=== PATIENT | male | born 1955 | race Caucasian/White ===

== ENCOUNTER 2019-06-28 22:58 | Inpatient (IN) ==
[2019-06-29 02:33] LABS: White Blood Count 9.1 K/mcL (4.3-11.1)
[2019-06-29 02:34] LABS: Hematocrit 24.9 % (37.5-50.1); Hemoglobin 6.6 g/dL (12.9-16.9); Immature Granulocytes % 1.1 % (0-4); Lymphocytes # 0.8 K/mcL (0.6-4.6); Lymphocytes % 8.6 %; Mean Corpuscular HGB Conc 26.5 g/dL (31.6-35.5); Mean Corpuscular Hemoglobin 17.5 pg (28.0-33.3); Monocytes # 0.1 K/mcL (0.0-1.3); Monocytes % 1.2 %; Neutrophils # 8.1 K/mcL (1.6-8.9); Platelet Count 392 K/mcL (140-400); Red Blood Count 3.77 M/mcL (4.19-5.50); Red Cell Distribution Width 19.9 % (11.5-14.5); Segmented Neutrophils % 89.1 %
[2019-06-29 02:36] LABS: Prothrombin Time 11.9 Seconds (9.4-12.1)
[2019-06-29 02:50] LABS: Anisocytosis 1+ (Not Present); Hypochromasia Present (Not Present); Microcytosis Present (Not Present); Platelet Estimate Normal (Normal)
[2019-06-29 02:54] LABS: Alanine Aminotransferase 6 Units/L (7-52); Albumin 3.8 g/dL (3.5-5.7); Albumin/Globulin Ratio 1.1 (1.1-2.2); Alkaline Phosphatase 169 Units/L (34-104); Aspartate Amino Transferase 11 Units/L (13-39); BUN/Creatinine Ratio 17 (6-26); Bilirubin,Total 0.4 mg/dL (0.3-1.0); Blood Urea Nitrogen 17 mg/dL (8-23); Calcium 8.9 mg/dL (8.6-10.3); Carbon Dioxide 21 mEq/L (23-29); Chloride 105 mEq/L (98-107); Globulin 3.6 g/dL (2.4-3.5); Glucose 151 mg/dL (70-105); Magnesium 1.7 mg/dL (1.6-2.6); Osmolality,Calculated 284 (280-300); Phosphorous 3.7 mg/dL (2.7-4.5); Potassium 4.2 mEq/L (3.5-5.1); Sodium 135 mEq/L (136-145); Total Protein 7.4 g/dL (6.4-8.9); eGFR For African Americans > 60 (> 60); eGFR For Non-African Americans > 60 (> 60)
[2019-06-29 02:55] LABS: Bilirubin,Urine Negative (Negative); Blood,Urine Negative (Negative); Clarity,Urine Clear (Clear); Color,Urine Yellow (Yellow); Glucose,Urine (UA) Normal (Normal); Ketones,Urine Negative (Negative); Leukocyte Esterase,Urine Negative (Negative); Nitrite,Urine Negative (Negative); Protein,Urine 30 mg/dL (Neg-Trace); Specific Gravity,Urine > 1.030 (1.010-1.025); Urobilinogen,Urine Normal (Normal)
[2019-06-29 02:58] LABS: Bacteria,Urine None Seen per hpf (None-Few); Hyaline Casts,Urine None Seen per lpf (None-Few); Squamous Epithelial Cell,Urine Moderate per lpf (None-Few); WBC,Urine 0-3 per hpf (0-3)
[2019-06-29 03:07] LABS: Thyroid Stimulating Hormone 1.211 mcIU/mL (0.340-5.600)
[2019-06-29 03:30] LABS: Estimated Average Glucose 131 mg/dl
[2019-06-29] MEDS ORDERED: 0.9 % Sodium Chloride 250 ML IVC SCH (07:00)
[2019-06-29 07:28] LABS: Hematocrit 24.2 % (37.5-50.1); Hemoglobin 6.5 g/dL (12.9-16.9); Retculocyte # 0.04 M/mcL (0.05-0.10)
[2019-06-29] MEDS ORDERED: Morphine Sulfate 2 MG/ML SYRINGE IVP ONE (07:45)
[2019-06-29] MEDS ORDERED: Naloxone 0.4 MG/ML INJ IVP PRN (07:49)
[2019-06-29] MEDS ORDERED: Melatonin 3 MG TABLET PO PRN (07:50)
[2019-06-29 08:02] LABS: Ferritin < 8 ng/mL (20-250); Iron < 10 mcg/dL (65-175); Transferrin 388 mg/dL (203-362)
[2019-06-29 08:22] LABS: Folate 9.3 ng/mL (3.0-16.0)
[2019-06-29] MEDS: Pantoprazole 40 MG VIAL IVP SCH ×2 (10:39→17:30)
[2019-06-29] MEDS: *HR* OxyCODONE/APAP 5/325 TABLET PO PRN ×2 (10:50→17:41)
[2019-06-29 11:40] LABS: Amphetamine Screen,Urine Negative ng/mL (Cutoff=1000); Barbiturate Screen,Urine Negative ng/mL (Cutoff=200); Benzodiazepines Screen,Urine Negative ng/mL (Cutoff=200); Cannabinoid Screen,Urine Positive ng/mL (Cutoff = 50); Cocaine Screen,Urine Negative ng/mL (Cutoff= 300); Opiate Screen,Urine Positive ng/mL (Cutoff=300); Phencyclidine Screen,Urine Negative ng/mL (Cutoff=25)
[2019-06-29] MEDS ORDERED: Acetaminophen 325 MG TABLET PO SCH (12:00)
[2019-06-29] MEDS ORDERED: Acetaminophen 325 MG TABLET PO PRN (12:02)
[2019-06-29 14:22] LABS: Hematocrit 25.5 % (37.5-50.1)
[2019-06-29 19:38] LABS: Hematocrit 30.7 % (37.5-50.1)
[2019-06-29 19:49] LABS: Hemoglobin 8.6 g/dL (12.9-16.9)
[2019-06-29] MEDS: Morphine Sulfate 2 MG/ML SYRINGE IVP PRN (20:24)
[2019-06-29] MEDS ORDERED: Milk and Molasses Enema 200 ML RC ONE (23:12)
[2019-06-29] MEDS ORDERED: *HR* OxyCODONE Immed Rel 5 MG TABLET PO ONE (23:15)
[2019-06-29] MEDS: Ipratropium/Albuterol Neb 3 ML IH PRN (23:55)
[2019-06-30] MEDS: Morphine Sulfate 2 MG/ML SYRINGE IVP PRN ×3 (02:50→15:51)
[2019-06-30 05:17] LABS: BUN/Creatinine Ratio 20 (6-26); Blood Urea Nitrogen 20 mg/dL (8-23); Calcium 8.8 mg/dL (8.6-10.3); Carbon Dioxide 26 mEq/L (23-29); Chloride 104 mEq/L (98-107); Glucose 110 mg/dL (70-105); Osmolality,Calculated 285 (280-300); Sodium 136 mEq/L (136-145); eGFR For African Americans > 60 (> 60); eGFR For Non-African Americans > 60 (> 60)
[2019-06-30 05:20] LABS: Hemoglobin 8.5 g/dL (12.9-16.9); Mean Corpuscular HGB Conc 27.4 g/dL (31.6-35.5); Mean Corpuscular Hemoglobin 19.6 pg (28.0-33.3); Mean Corpuscular Volume 71.4 fL (83.0-100.0); Mean Platelet Volume 9.6 fL (9.4-12.4); Platelet Count 424 K/mcL (140-400); Red Blood Count 4.34 M/mcL (4.19-5.50); Red Cell Distribution Width 24.1 % (11.5-14.5); White Blood Count 10.3 K/mcL (4.3-11.1)
[2019-06-30] MEDS: Pantoprazole 40 MG VIAL IVP SCH ×2 (05:50→17:48)
[2019-06-30] MEDS: Ipratropium/Albuterol Neb 3 ML IH PRN (08:18)
[2019-06-30] MEDS ORDERED: Orphenadrine 60 MG/2 ML VIAL IVP ONE (08:57)
[2019-06-30] MEDS ORDERED: Albuterol 2.5 MG/3 ML NEBULIZER IH PRN (09:35)
[2019-06-30] MEDS: Ipratropium/Albuterol Neb 3 ML IH SCH ×2 (11:01→15:27)
[2019-06-30] MEDS ORDERED: Isovue-370 500 ML BOTTLE IVP ONE (12:59)
[2019-06-30] MEDS ORDERED: Orphenadrine 100 MG TABLET.ER PO PRN (13:36)
[2019-06-30] MEDS ORDERED: NON-FORMULARY MEDICATION 1 EACH EACH (Melatonin 20 MG) PO PRN (13:56)
[2019-06-30] MEDS ORDERED: Ondansetron 4 MG/2 ML VIAL IVP PRN (15:48)
[2019-06-30 20:03] LABS: ABG Base Excess -2 mEq/L (-2 to 3); ABG HCO3 25 mEq/L (21-27); ABG Oxygen Saturation 87 % (95-98); ABG PCO2 50 mmHg (35-45); ABG PH 7.31 pH Units (7.32-7.45); ABG PO2 58 mmHg (85-104); ABG TCO2 27 mEq/L (20-26)
[2019-06-30] MEDS: Levalbuterol Neb 1.25 MG/3 ML IH SCH (20:16)
[2019-06-30] MEDS: methylPREDNISolone 125 MG/2 ML VIAL IVP SCH (23:52)
[2019-07-01] MEDS: Levalbuterol Neb 1.25 MG/3 ML IH SCH ×7 (00:03→23:24)
[2019-07-01] MEDS ORDERED: Milk and Molasses Enema 200 ML RC ONE (00:04)
[2019-07-01] MEDS: *HR* HYDROcodone/Acet 5/325 mg TABLET PO PRN ×4 (02:10→21:41)
[2019-07-01] MEDS: Pantoprazole 40 MG VIAL IVP SCH ×2 (05:04→14:57)
[2019-07-01 05:42] LABS: Hematocrit 29.3 % (37.5-50.1); Hemoglobin 7.9 g/dL (12.9-16.9); Mean Corpuscular Hemoglobin 19.7 pg (28.0-33.3); Mean Corpuscular Volume 73.1 fL (83.0-100.0); Mean Platelet Volume 9.4 fL (9.4-12.4); Platelet Count 334 K/mcL (140-400); Red Blood Count 4.01 M/mcL (4.19-5.50); Red Cell Distribution Width 24.6 % (11.5-14.5); White Blood Count 9.2 K/mcL (4.3-11.1)
[2019-07-01 05:54] LABS: BUN/Creatinine Ratio 21 (6-26); Blood Urea Nitrogen 21 mg/dL (8-23); Calcium 9.1 mg/dL (8.6-10.3); Carbon Dioxide 26 mEq/L (23-29); Chloride 100 mEq/L (98-107); Glucose 140 mg/dL (70-105); Osmolality,Calculated 285 (280-300); Potassium 4.4 mEq/L (3.5-5.1); Sodium 135 mEq/L (136-145); eGFR For African Americans > 60 (> 60); eGFR For Non-African Americans > 60 (> 60)
[2019-07-01] MEDS: methylPREDNISolone 125 MG/2 ML VIAL IVP SCH ×2 (08:41→15:56)
[2019-07-01] MEDS ORDERED: Dextrose Gel 15 GM/37.5 ML TUBE PO PRN ×2 (10:28)
[2019-07-01] MEDS ORDERED: D5% in Water 1,000 ML IVC PRN (10:28)
[2019-07-01] MEDS ORDERED: *HR* Dextrose 50 % in Water (Syg) 50 ML SYRINGE IVP PRN (10:28)
[2019-07-01] MEDS ORDERED: *HR* Succinylcholine 200 MG/10 ML VIAL IVP ONE (10:49)
[2019-07-01] MEDS ORDERED: Lidocaine -MPF 2% 2 ML VIAL ONE (10:49)
[2019-07-01] MEDS ORDERED: Ondansetron 4 MG/2 ML VIAL ONE (10:49)
[2019-07-01] MEDS ORDERED: Lidocaine -MPF 4% 5 ML AMPUL ONE (10:49)
[2019-07-01] MEDS ORDERED: *HR* Propofol 200 MG/20 ML VIAL IVP ONE (10:50)
[2019-07-01] MEDS ORDERED: *HR* PHENYLEPHRINE 1,000 MCG/10 ML SYRINGE IVP ONE (10:55)
[2019-07-01] MEDS ORDERED: Iron Sucrose Complex 200 MG in 0.9 % Sodium Chloride 100 ML IVPB ONE ×2 (11:14→15:00)
[2019-07-01] MEDS ORDERED: EPHEDrine 50 MG/ML VIAL ONE (11:26)
[2019-07-01] MEDS ORDERED: Insulin LISPRO 300 UNITS/3 ML VIAL SQ SCH (12:00)
[2019-07-01] MEDS ORDERED: Azithromycin 500 MG in 0.9 % Sodium Chloride 250 ML IVPB ONE (14:24)
[2019-07-01] MEDS ORDERED: Sodium Ferric Gluconat/Sucrose 250 MG in 0.9 % Sodium Chloride 100 ML IVPB SCH (14:32)
[2019-07-01] MEDS: Iron Sucrose Complex 200 MG in 0.9 % Sodium Chloride 100 ML IVPB SCH (14:55)
[2019-07-01] MEDS: Cyanocobalamin (B-12) 1,000 MCG/ML VIAL IM SCH (15:13)
[2019-07-01] MEDS: Budesonide/Formoterol 160/4.5 1 PUFF INH IH SCH ×2 (15:57→20:21)
[2019-07-01] MEDS: Doxycycline 100 MG in 0.9 % Sodium Chloride Mini Bag 100 ML IVPB SCH (17:33)
[2019-07-01] MEDS ORDERED: Piperacillin/Tazobactam 3.375 GM in 0.9 % Sodium Chloride Mini Bag 100 ML IVPB SCH ×2 (18:00→18:30)
[2019-07-02] MEDS: methylPREDNISolone 125 MG/2 ML VIAL IVP SCH ×4 (00:18→23:31)
[2019-07-02] MEDS: Levalbuterol Neb 1.25 MG/3 ML IH SCH ×6 (03:59→22:55)
[2019-07-02] MEDS: *HR* HYDROcodone/Acet 5/325 mg TABLET PO PRN ×4 (04:06→22:15)
[2019-07-02] MEDS: Doxycycline 100 MG in 0.9 % Sodium Chloride Mini Bag 100 ML IVPB SCH ×2 (05:57→17:15)
[2019-07-02] MEDS: Budesonide/Formoterol 160/4.5 1 PUFF INH IH SCH ×2 (07:34→20:11)
[2019-07-02] MEDS: Piperacillin/Tazobactam 3.375 GM in 0.9 % Sodium Chloride Mini Bag 100 ML IVPB SCH ×3 (08:51→23:32)
[2019-07-02] MEDS: Cyanocobalamin (B-12) 1,000 MCG/ML VIAL IM SCH (08:52)
[2019-07-02] MEDS: Pantoprazole 40 MG VIAL IVP SCH (08:53)
[2019-07-02] MEDS ORDERED: Azithromycin 250 MG TABLET PO SCH (09:00)
[2019-07-02] MEDS: Furosemide 20 MG/2 ML VIAL IVP SCH ×2 (13:51→17:15)
[2019-07-02] MEDS: Iron Sucrose Complex 200 MG in 0.9 % Sodium Chloride 100 ML IVPB SCH (13:51)
[2019-07-02 16:56] LABS: Mean Corpuscular Hemoglobin 19.7 pg (28.0-33.3)
[2019-07-02 17:11] LABS: Hematocrit 31.2 % (37.5-50.1); Hemoglobin 8.6 g/dL (12.9-16.9); Immature Platelets 3.5 % (1.1-6.1); Mean Corpuscular HGB Conc 27.6 g/dL (31.6-35.5); Mean Corpuscular Volume 71.6 fL (83.0-100.0); Mean Platelet Volume 9.9 fL (9.4-12.4); Red Blood Count 4.36 M/mcL (4.19-5.50); Red Cell Distribution Width 26.5 % (11.5-14.5); White Blood Count 11.1 K/mcL (4.3-11.1)
[2019-07-02 17:18] LABS: BUN/Creatinine Ratio 22 (6-26); Blood Urea Nitrogen 26 mg/dL (8-23); Calcium 9.1 mg/dL (8.6-10.3); Carbon Dioxide 23 mEq/L (23-29); Chloride 101 mEq/L (98-107); Glucose 187 mg/dL (70-105); Osmolality,Calculated 294 (280-300); Potassium 4.1 mEq/L (3.5-5.1); Sodium 137 mEq/L (136-145); eGFR For African Americans > 60 (> 60); eGFR For Non-African Americans > 60 (> 60)
[2019-07-03] MEDS: Levalbuterol Neb 1.25 MG/3 ML IH SCH ×5 (04:12→20:21)
[2019-07-03 04:42] LABS: Red Cell Distribution Width 26.9 % (11.5-14.5)
[2019-07-03 04:43] LABS: Basophils % 0.1 %; Hematocrit 26.8 % (37.5-50.1); Hemoglobin 7.3 g/dL (12.9-16.9); Immature Granulocytes % 1.5 % (0-4); Lymphocytes # 0.9 K/mcL (0.6-4.6); Lymphocytes % 9.4 %; Mean Corpuscular HGB Conc 27.2 g/dL (31.6-35.5); Mean Corpuscular Volume 73.4 fL (83.0-100.0); Mean Platelet Volume 9.5 fL (9.4-12.4); Monocytes # 0.5 K/mcL (0.0-1.3); Monocytes % 5.6 %; Platelet Count 333 K/mcL (140-400); Red Blood Count 3.65 M/mcL (4.19-5.50); Segmented Neutrophils % 83.4 %; White Blood Count 9.4 K/mcL (4.3-11.1)
[2019-07-03 04:48] LABS: Neutrophils # 7.8 K/mcL (1.6-8.9)
[2019-07-03 05:00] LABS: BUN/Creatinine Ratio 28 (6-26); Blood Urea Nitrogen 31 mg/dL (8-23); Calcium 8.6 mg/dL (8.6-10.3); Carbon Dioxide 28 mEq/L (23-29); Chloride 101 mEq/L (98-107); Glucose 136 mg/dL (70-105); Osmolality,Calculated 295 (280-300); Sodium 138 mEq/L (136-145); eGFR For African Americans > 60 (> 60); eGFR For Non-African Americans > 60 (> 60)
[2019-07-03 05:26] LABS: Anisocytosis 1+ (Not Present); Hypochromasia Present (Not Present)
[2019-07-03] MEDS: Doxycycline 100 MG in 0.9 % Sodium Chloride Mini Bag 100 ML IVPB SCH (05:26)
[2019-07-03] MEDS: *HR* HYDROcodone/Acet 5/325 mg TABLET PO PRN ×3 (05:26→20:09)
[2019-07-03 05:27] LABS: Platelet Estimate Normal (Normal); Polychromasia 1+ (Not Present)
[2019-07-03] MEDS: Budesonide/Formoterol 160/4.5 1 PUFF INH IH SCH ×2 (07:19→20:21)
[2019-07-03] MEDS: methylPREDNISolone 125 MG/2 ML VIAL IVP SCH ×2 (08:02→16:51)
[2019-07-03] MEDS: Piperacillin/Tazobactam 3.375 GM in 0.9 % Sodium Chloride Mini Bag 100 ML IVPB SCH ×2 (08:02→16:51)
[2019-07-03] MEDS: Pantoprazole 40 MG VIAL IVP SCH (08:03)
[2019-07-03] MEDS: Iron Sucrose Complex 200 MG in 0.9 % Sodium Chloride 100 ML IVPB SCH (08:03)
[2019-07-03] MEDS: Furosemide 20 MG/2 ML VIAL IVP SCH ×3 (08:03→16:51)
[2019-07-03] MEDS: Cyanocobalamin (B-12) 1,000 MCG/ML VIAL IM SCH (08:09)
[2019-07-03 10:20] LABS: Hematocrit 30.9 % (37.5-50.1); Hemoglobin 8.5 g/dL (12.9-16.9)
[2019-07-03] MEDS: Doxycycline 100 MG CAPSULE PO SCH (20:08)
[2019-07-04] MEDS: Levalbuterol Neb 1.25 MG/3 ML IH SCH ×5 (00:35→16:09)
[2019-07-04] MEDS: methylPREDNISolone 125 MG/2 ML VIAL IVP SCH (00:49)
[2019-07-04] MEDS: Piperacillin/Tazobactam 3.375 GM in 0.9 % Sodium Chloride Mini Bag 100 ML IVPB SCH ×3 (00:50→16:33)
[2019-07-04] MEDS: *HR* HYDROcodone/Acet 5/325 mg TABLET PO PRN ×3 (03:42→16:33)
[2019-07-04] MEDS: Budesonide/Formoterol 160/4.5 1 PUFF INH IH SCH (07:20)
[2019-07-04 07:29] LABS: Red Cell Distribution Width 27.9 % (11.5-14.5)
[2019-07-04 07:31] LABS: Basophils % 0.1 %; Hematocrit 29.2 % (37.5-50.1); Hemoglobin 8.2 g/dL (12.9-16.9); Immature Granulocytes % 2.3 % (0-4); Lymphocytes # 1.4 K/mcL (0.6-4.6); Lymphocytes % 12.7 %; Mean Corpuscular HGB Conc 28.1 g/dL (31.6-35.5); Mean Corpuscular Hemoglobin 19.9 pg (28.0-33.3); Mean Corpuscular Volume 70.9 fL (83.0-100.0); Mean Platelet Volume 9.6 fL (9.4-12.4); Monocytes # 0.7 K/mcL (0.0-1.3); Monocytes % 6.4 %; Nucleated Red Blood Cells 0.5 /100 WBC (0); Platelet Count 363 K/mcL (140-400); Red Blood Count 4.12 M/mcL (4.19-5.50); Segmented Neutrophils % 78.5 %; White Blood Count 10.9 K/mcL (4.3-11.1)
[2019-07-04 07:47] LABS: BUN/Creatinine Ratio 30 (6-26); Blood Urea Nitrogen 30 mg/dL (8-23); Calcium 8.6 mg/dL (8.6-10.3); Carbon Dioxide 30 mEq/L (23-29); Chloride 99 mEq/L (98-107); Glucose 220 mg/dL (70-105); Osmolality,Calculated 301 (280-300); Potassium 4.1 mEq/L (3.5-5.1); Sodium 139 mEq/L (136-145); eGFR For African Americans > 60 (> 60); eGFR For Non-African Americans > 60 (> 60)
[2019-07-04 07:50] LABS: Neutrophils # 8.6 K/mcL (1.6-8.9)
[2019-07-04 08:29] LABS: Anisocytosis 3+ (Not Present); Hypochromasia Present (Not Present); Microcytosis Present (Not Present)
[2019-07-04 08:30] LABS: Macrocytosis Present (Not Present); Polychromasia 1+ (Not Present)
[2019-07-04 08:31] LABS: Platelet Estimate Normal (Normal)
[2019-07-04] MEDS ORDERED: Furosemide 40 MG TABLET PO SCH (09:00)
[2019-07-04] MEDS ORDERED: predniSONE 20 MG TABLET PO SCH (09:00)
[2019-07-04] MEDS: Iron Sucrose Complex 200 MG in 0.9 % Sodium Chloride 100 ML IVPB SCH (09:03)
[2019-07-04] MEDS: Doxycycline 100 MG CAPSULE PO SCH (09:04)
[2019-07-04] MEDS: Cyanocobalamin (B-12) 1,000 MCG/ML VIAL IM SCH (09:04)
[2019-07-04] MEDS: Pantoprazole 40 MG VIAL IVP SCH (09:04)
[2019-07-04 14:09] VITALS: BP 171/87
== END 2019-07-04 19:05 | disposition home or self-care (01) | DRG 377 ==
LOC: 3ANU → SUATTDRO 06-29 00:30
PROVIDERS: ADMIT Internal Medicine; ATTEND Internal Medicine

== ENCOUNTER 2020-07-31 03:07 | Observation (INO) ==
[2020-07-31 04:19] LABS: Bilirubin,Urine Negative (Negative); Blood,Urine Negative (Negative); Clarity,Urine Clear (Clear); Color,Urine Light-Yellow (Yellow); Glucose,Urine (UA) Normal (Normal); Ketones,Urine Negative (Negative); Leukocyte Esterase,Urine Negative (Negative); Nitrite,Urine Negative (Negative); Protein,Urine Trace mg/dL (Neg-Trace); Specific Gravity,Urine 1.017 (1.010-1.025); Urobilinogen,Urine Normal (Normal)
[2020-07-31 04:21] LABS: Basophils % 0.2 %; Immature Granulocytes % 0.4 % (0-4)
[2020-07-31 04:23] LABS: Eosinophils # 0.3 K/mcL (0.0-0.6); Eosinophils % 2.3 %; Hematocrit 30.2 % (37.5-50.1); Hemoglobin 8.1 g/dL (12.9-16.9); Lymphocytes # 3.8 K/mcL (0.6-4.6); Lymphocytes % 35.9 %; Mean Corpuscular HGB Conc 26.8 g/dL (31.6-35.5); Mean Corpuscular Hemoglobin 18.3 pg (28.0-33.3); Mean Corpuscular Volume 68.2 fL (83.0-100.0); Mean Platelet Volume 9.2 fL (9.4-12.4); Monocytes # 0.9 K/mcL (0.0-1.3); Monocytes % 8.7 %; Neutrophils # 5.6 K/mcL (1.6-8.9); Platelet Count 484 K/mcL (140-400); Red Blood Count 4.43 M/mcL (4.19-5.50); Red Cell Distribution Width 19.1 % (11.5-14.5); Segmented Neutrophils % 52.5 %; White Blood Count 10.7 K/mcL (4.3-11.1)
[2020-07-31 04:30] LABS: INR 1.1; Prothrombin Time 12.7 Seconds (9.4-12.1)
[2020-07-31 04:54] LABS: BUN/Creatinine Ratio 19 (6-26); Blood Urea Nitrogen 25 mg/dL (8-23); Calcium 8.9 mg/dL (8.6-10.3); Carbon Dioxide 32 mEq/L (23-29); Chloride 93 mEq/L (98-107); Glucose 95 mg/dL (70-105); Osmolality,Calculated 284 (280-300); Potassium 2.4 mEq/L (3.5-5.1); Sodium 135 mEq/L (136-145); eGFR For African Americans > 60 (> 60); eGFR For Non-African Americans 56 (> 60)
[2020-07-31 05:02] LABS: Anisocytosis 1+ (Not Present); Hypochromasia Present (Not Present)
[2020-07-31 05:03] LABS: Platelet Estimate Normal (Normal); Poikilocytosis 1+ (Not Present)
[2020-07-31] MEDS ORDERED: Perflutren Lipid Microsphere 1.3 ML in 0.9 % Sodium Chloride 8.7 ML IVP PRN (05:28)
[2020-07-31] MEDS ORDERED: Potassium Chloride 40 MEQ, Lidocaine 1% 2 ML in 0.9 % Sodium Chloride 500 ML IVPB ONE (05:45)
[2020-07-31] MEDS ORDERED: Naloxone 0.4 MG/ML INJ IVP PRN (05:46)
[2020-07-31] MEDS ORDERED: Iron Dextran Complex 1,000 MG in 0.9 % Sodium Chloride 500 ML IVPB ONE (07:33)
[2020-07-31] MEDS: tiZANidine 4 MG TABLET PO SCH ×3 (07:59→20:28)
[2020-07-31] MEDS ORDERED: Nicotine 2 MG GUM BC PRN (12:16)
[2020-07-31] MEDS: Nicotine 21 MG PATCH.TD24 TD SCH (13:33)
[2020-07-31] MEDS ORDERED: traZODone 50 MG TABLET PO SCH (21:00)
[2020-07-31] MEDS ORDERED: Melatonin 3 MG TABLET PO PRN (21:00)
[2020-08-01 07:02] VITALS: BP 108/64
[2020-08-01] MEDS: tiZANidine 4 MG TABLET PO SCH (09:34)
[2020-08-01] MEDS: Nicotine 21 MG PATCH.TD24 TD SCH (09:35)
[2020-08-01 10:10] LABS: Mean Platelet Volume 9.2 fL (9.4-12.4)
[2020-08-01 10:11] LABS: Hematocrit 29.7 % (37.5-50.1); Hemoglobin 7.9 g/dL (12.9-16.9); Mean Corpuscular HGB Conc 26.6 g/dL (31.6-35.5); Mean Corpuscular Hemoglobin 18.5 pg (28.0-33.3); Mean Corpuscular Volume 69.4 fL (83.0-100.0); Platelet Count 481 K/mcL (140-400); Red Blood Count 4.28 M/mcL (4.19-5.50); Red Cell Distribution Width 19.3 % (11.5-14.5); White Blood Count 7.6 K/mcL (4.3-11.1)
[2020-08-01 10:20] LABS: Alanine Aminotransferase 5 Units/L (7-52); Albumin 3.6 g/dL (3.5-5.7); Albumin/Globulin Ratio 1.1 (1.1-2.2); Alkaline Phosphatase 111 Units/L (34-104); Aspartate Amino Transferase 8 Units/L (13-39); BUN/Creatinine Ratio 14 (6-26); Bilirubin,Total 0.3 mg/dL (0.3-1.0); Blood Urea Nitrogen 15 mg/dL (8-23); Calcium 8.8 mg/dL (8.6-10.3); Carbon Dioxide 30 mEq/L (23-29); Chloride 101 mEq/L (98-107); Globulin 3.4 g/dL (2.4-3.5); Glucose 86 mg/dL (70-105); Osmolality,Calculated 288 (280-300); Potassium 3.8 mEq/L (3.5-5.1); Sodium 139 mEq/L (136-145); eGFR For African Americans > 60 (> 60); eGFR For Non-African Americans > 60 (> 60)
== END 2020-08-01 12:49 | disposition home or self-care (01) ==
LOC: EMEROOARM 03:07 → 3ANU 03:07 → SUATTDRO 05:36 → 3ANU 06:52
PROVIDERS: ADMIT Internal Medicine; ATTEND Family Medicine

== ENCOUNTER 2020-08-08 21:22 | Observation (INO) ==
[2020-08-08] MEDS ORDERED: Isovue-370 500 ML BOTTLE IVP ONE ×2 (21:46→21:50)
[2020-08-08 22:04] LABS: Basophils % 0.2 %; Eosinophils # 0.2 K/mcL (0.0-0.6); Eosinophils % 1.3 %; Hematocrit 29.2 % (37.5-50.1); Hemoglobin 8.2 g/dL (12.9-16.9); Immature Granulocytes % 0.4 % (0-4); Lymphocytes # 3.7 K/mcL (0.6-4.6); Mean Corpuscular HGB Conc 28.1 g/dL (31.6-35.5); Mean Corpuscular Hemoglobin 20.4 pg (28.0-33.3); Mean Corpuscular Volume 72.6 fL (83.0-100.0); Monocytes # 1.3 K/mcL (0.0-1.3); Monocytes % 10.1 %; Platelet Count 458 K/mcL (140-400); Red Blood Count 4.02 M/mcL (4.19-5.50); Red Cell Distribution Width 25.9 % (11.5-14.5); White Blood Count 13.3 K/mcL (4.3-11.1)
[2020-08-08 22:07] LABS: INR 1.1; Prothrombin Time 13.2 Seconds (9.4-12.1)
[2020-08-08 22:10] LABS: Activated Partial Thrombo Time 28.8 Seconds (26.0-36.0)
[2020-08-08 22:17] LABS: Anisocytosis 2+ (Not Present); Hypochromasia Present (Not Present); Ovalocytes 1+ (Not Present)
[2020-08-08 22:22] LABS: Bilirubin,Urine Negative (Negative); Blood,Urine Negative (Negative); Clarity,Urine Clear (Clear); Color,Urine Yellow (Yellow); Glucose,Urine (UA) Normal (Normal); Ketones,Urine Negative (Negative); Leukocyte Esterase,Urine Negative (Negative); Nitrite,Urine Negative (Negative); Protein,Urine 30 mg/dL (Neg-Trace); RBC,Urine 0-3 per hpf (0-3); Specific Gravity,Urine 1.021 (1.010-1.025); Squamous Epithelial Cell,Urine Few per hpf (None-Few); WBC,Urine 0-3 per hpf (0-3)
[2020-08-08 22:31] LABS: Alanine Aminotransferase 9 Units/L (7-52); Albumin 3.7 g/dL (3.5-5.7); Albumin/Globulin Ratio 1.2 (1.1-2.2); Alkaline Phosphatase 97 Units/L (34-104); Aspartate Amino Transferase 24 Units/L (13-39); BUN/Creatinine Ratio 11 (6-26); Bilirubin,Direct 0.2 mg/dL (0.0-0.2); Bilirubin,Indirect 0.4 mg/dL (0.0-1.0); Bilirubin,Total 0.6 mg/dL (0.3-1.0); Blood Urea Nitrogen 16 mg/dL (8-23); Calcium 9.1 mg/dL (8.6-10.3); Carbon Dioxide 28 mEq/L (23-29); Chloride 96 mEq/L (98-107); Creatine Kinase 600 Units/L (30-223); Ethanol < 10 mg/dL (Less than 10); Globulin 3.2 g/dL (2.4-3.5); Glucose 112 mg/dL (70-105); Lipase 6 Units/L (11-82); Osmolality,Calculated 280 (280-300); Sodium 134 mEq/L (136-145); Total Protein 6.9 g/dL (6.4-8.9); Troponin I < 0.03 ng/mL (< 0.04); eGFR For African Americans > 60 (> 60); eGFR For Non-African Americans 51 (> 60)
[2020-08-08 22:35] LABS: Amphetamine Screen,Urine Negative ng/mL (Cutoff=1000); Barbiturate Screen,Urine Negative ng/mL (Cutoff=200); Benzodiazepines Screen,Urine Negative ng/mL (Cutoff=200); Cannabinoid Screen,Urine Positive ng/mL (Cutoff = 50); Cocaine Screen,Urine Negative ng/mL (Cutoff= 300); Opiate Screen,Urine Positive ng/mL (Cutoff=300); Phencyclidine Screen,Urine Negative ng/mL (Cutoff=25)
[2020-08-08] MEDS ORDERED: 0.9 % Sodium Chloride 1,000 ML IVC ONE (22:38)
[2020-08-08 22:44] LABS: Thyroid Stimulating Hormone 0.925 mcIU/mL (0.340-5.600)
[2020-08-08 22:54] LABS: VBG HCO3 30 mEq/L (21-27); VBG PCO2 50 mmHg (41-51); VBG PH 7.39 pH Units (7.32-7.42); VBG PO2 105 mmHg (25-50)
[2020-08-09] MEDS ORDERED: cefTRIAXone 1,000 MG in Water for inj. (sterile) 10 ML IVP ONE (00:20)
[2020-08-09] MEDS ORDERED: Azithromycin 500 MG in 0.9 % Sodium Chloride 250 ML IVPB ONE (00:20)
[2020-08-09] MEDS ORDERED: Naloxone 0.4 MG/ML INJ IVP PRN (01:04)
[2020-08-09] MEDS ORDERED: Acetaminophen 325 MG TABLET PO PRN (01:04)
[2020-08-09] MEDS ORDERED: Ondansetron ODT 4 MG TAB.RAPDIS SL PRN (01:04)
[2020-08-09] MEDS ORDERED: Perflutren Lipid Microsphere 1.3 ML in 0.9 % Sodium Chloride 8.7 ML IVP PRN (01:07)
[2020-08-09] MEDS ORDERED: Ipratropium/Albuterol Neb 3 ML IH PRN (01:08)
[2020-08-09] MEDS: 0.9 % Sodium Chloride 1,000 ML IVC SCH ×3 (01:22→22:59)
[2020-08-09] MEDS ORDERED: Lidocaine -MPF 4% 5 ML AMPUL INFILT ONE (01:30)
[2020-08-09] MEDS ORDERED: *HR* Propofol 200 MG/20 ML VIAL IVP ONE (01:30)
[2020-08-09 03:01] LABS: Basophils % 0.2 %; Eosinophils % 1.3 %; Mean Platelet Volume 9.3 fL (9.4-12.4)
[2020-08-09 03:03] LABS: Eosinophils # 0.1 K/mcL (0.0-0.6); Hematocrit 27.8 % (37.5-50.1); Hemoglobin 7.5 g/dL (12.9-16.9); Immature Granulocytes % 0.5 % (0-4); Lymphocytes # 3.9 K/mcL (0.6-4.6); Lymphocytes % 36.5 %; Mean Corpuscular Hemoglobin 19.9 pg (28.0-33.3); Mean Corpuscular Volume 73.9 fL (83.0-100.0); Monocytes # 1.1 K/mcL (0.0-1.3); Monocytes % 9.9 %; Neutrophils # 5.5 K/mcL (1.6-8.9); Platelet Count 389 K/mcL (140-400); Red Blood Count 3.76 M/mcL (4.19-5.50); Segmented Neutrophils % 51.6 %; White Blood Count 10.7 K/mcL (4.3-11.1)
[2020-08-09 03:17] LABS: BUN/Creatinine Ratio 13 (6-26); Blood Urea Nitrogen 16 mg/dL (8-23); Carbon Dioxide 25 mEq/L (23-29); Chloride 101 mEq/L (98-107); Creatine Kinase 468 Units/L (30-223); Glucose 110 mg/dL (70-105); Magnesium 1.7 mg/dL (1.6-2.6); Osmolality,Calculated 278 (280-300); Phosphorous 3.2 mg/dL (2.7-4.5); Potassium 4.3 mEq/L (3.5-5.1); Sodium 133 mEq/L (136-145); eGFR For African Americans > 60 (> 60); eGFR For Non-African Americans 58 (> 60)
[2020-08-09] MEDS ORDERED: Pantoprazole 40 MG VIAL IVP ONE (03:18)
[2020-08-09] MEDS ORDERED: Ondansetron 4 MG/2 ML VIAL IVP PRN ×2 (03:18→04:16)
[2020-08-09] MEDS ORDERED: Pantoprazole 80 MG in 0.9 % Sodium Chloride 50 ML IVPB ONE (03:30)
[2020-08-09 04:33] LABS: Anisocytosis 3+ (Not Present); Hypochromasia Present (Not Present); Platelet Estimate Normal (Normal); Reactive Lymphocytes Present (Not Present)
[2020-08-09] MEDS ORDERED: MethylPREDNISolone 40 MG/ML VIAL IVP SCH (09:01)
[2020-08-09] MEDS ORDERED: Iron Sucrose Complex 400 MG in 0.9 % Sodium Chloride 250 ML IVPB ONE (09:02)
[2020-08-09] MEDS ORDERED: 0.9 % Sodium Chloride 500 ML IVC SCH (11:00)
[2020-08-09 14:01] LABS: Basophils % 0.1 %; Eosinophils # 0.1 K/mcL (0.0-0.6); Hemoglobin 7.3 g/dL (12.9-16.9); Immature Granulocytes % 0.4 % (0-4); Lymphocytes # 1.3 K/mcL (0.6-4.6); Lymphocytes % 18.3 %; Mean Corpuscular Hemoglobin 20.2 pg (28.0-33.3); Mean Corpuscular Volume 74.8 fL (83.0-100.0); Monocytes # 0.3 K/mcL (0.0-1.3); Monocytes % 3.6 %; Platelet Count 313 K/mcL (140-400); Red Blood Count 3.61 M/mcL (4.19-5.50); Red Cell Distribution Width 26.1 % (11.5-14.5); Segmented Neutrophils % 76.6 %; White Blood Count 7.1 K/mcL (4.3-11.1)
[2020-08-09 14:04] LABS: Neutrophils # 5.4 K/mcL (1.6-8.9)
[2020-08-09 15:06] LABS: Anisocytosis 2+ (Not Present); Hypochromasia Present (Not Present); Ovalocytes 1+ (Not Present); Schistocytes 1+ (Not Present); Stomatocytes 1+ (Not Present)
[2020-08-09 15:07] LABS: Platelet Estimate Normal (Normal)
[2020-08-09] MEDS: Pantoprazole 40 MG VIAL IVP SCH (16:56)
[2020-08-09] MEDS: MethylPREDNISolone 40 MG/ML VIAL IVP SCH (16:56)
[2020-08-09] MEDS ORDERED: traZODone 50 MG TABLET PO SCH (23:15)
[2020-08-10] MEDS: Pantoprazole 40 MG VIAL IVP SCH (05:30)
[2020-08-10] MEDS: MethylPREDNISolone 40 MG/ML VIAL IVP SCH (05:30)
[2020-08-10] MEDS: 0.9 % Sodium Chloride 1,000 ML IVC SCH (05:33)
[2020-08-10 06:09] LABS: Hematocrit 25.6 % (37.5-50.1); Hemoglobin 6.9 g/dL (12.9-16.9); Immature Granulocytes % 0.9 % (0-4); Lymphocytes # 1.7 K/mcL (0.6-4.6); Lymphocytes % 29.4 %; Mean Corpuscular Hemoglobin 20.5 pg (28.0-33.3); Mean Platelet Volume 9.6 fL (9.4-12.4); Monocytes # 0.4 K/mcL (0.0-1.3); Monocytes % 6.3 %; Neutrophils # 3.6 K/mcL (1.6-8.9); Platelet Count 312 K/mcL (140-400); Red Blood Count 3.37 M/mcL (4.19-5.50); Red Cell Distribution Width 26.7 % (11.5-14.5); Segmented Neutrophils % 63.4 %; White Blood Count 5.7 K/mcL (4.3-11.1)
[2020-08-10 06:12] LABS: Anisocytosis 1+ (Not Present); Hypochromasia Present (Not Present); Platelet Estimate Normal (Normal)
[2020-08-10 06:27] LABS: BUN/Creatinine Ratio 14 (6-26); Blood Urea Nitrogen 14 mg/dL (8-23); Calcium 8.2 mg/dL (8.6-10.3); Carbon Dioxide 24 mEq/L (23-29); Chloride 107 mEq/L (98-107); Creatine Kinase 141 Units/L (30-223); Glucose 93 mg/dL (70-105); Magnesium 1.8 mg/dL (1.6-2.6); Osmolality,Calculated 288 (280-300); Potassium 4.1 mEq/L (3.5-5.1); Sodium 139 mEq/L (136-145); eGFR For African Americans > 60 (> 60); eGFR For Non-African Americans > 60 (> 60)
[2020-08-10] MEDS ORDERED: cefTRIAXone 1,000 MG in 0.9 % Sodium Chloride Mini Bag 100 ML IVPB SCH (09:00)
[2020-08-10] MEDS ORDERED: Azithromycin 500 MG in 0.9 % Sodium Chloride 250 ML IVPB SCH (09:00)
[2020-08-10] MEDS ORDERED: Iron Sucrose Complex 400 MG in 0.9 % Sodium Chloride 250 ML IVPB ONE (09:05)
[2020-08-10] MEDS ORDERED: FLUoxetine 20 MG CAPSULE PO SCH (09:15)
[2020-08-10 09:48] LABS: Hematocrit 28.4 % (37.5-50.1); Hemoglobin 7.6 g/dL (12.9-16.9)
[2020-08-10 11:45] VITALS: BP 157/79
== END 2020-08-10 15:58 | disposition home or self-care (01) ==
LOC: 3BNU 21:22 → EMEROOARM 21:22 → SUATTDRO 08-09 01:29 → 3BNU 08-09 02:10
PROVIDERS: ADMIT Internal Medicine; ATTEND Internal Medicine